=== PATIENT | female | born 1975 | race Caucasian/White ===

== ENCOUNTER 2019-08-10 | Emergency (ER) | payer BC ==
[~2019-08-10] MED LIST: AMOXICILLIN500 MG OR; CIPRO500 MG OR; EFFEXOR XR75 MG PO; FLEXERIL5 MG PO; HYDROCHLOROT25 MG PO; LORTAB 5/3255 MG PO; MELOXICAM15 MG PO; NO HOME MEDS; PERCOCET 5/325M1 TAB OR; PERCOCET 5/325M1 TAB PO; SOMA350 MG PO; ULTRAM50 M1 OR; ULTRAM50 M1 PO; ULTRAM50 MG OR
[2019-08-10] MEDS ORDERED: NAPROXEN DR500 MG PO (12:22)
[2019-08-10] MEDS ORDERED: FLEXERIL PO (12:22)
== END 2019-08-10 12:30 | disposition home or self-care (01) | DRG 563 ==
DX: S39.012A Strain of muscle, fascia and tendon of lower back, initial encounter (principal); F17.210 Nicotine dependence, cigarettes, uncomplicated; X58.XXXA Exposure to other specified factors, initial encounter

== ENCOUNTER 2020-01-23 09:42 | Emergency (ER) | payer SELFPAY ==
[~2020-01-23] VITALS: Ht 160 cm; Wt 73.6 kg
[~2020-01-23 09:42] MED LIST changes: +FLEXERIL PO; +NAPROXEN DR500 MG PO
[2020-01-23 10:19] LABS: HEMATOCRIT 37.9 % (37.0-47.0); HEMOGLOBIN 11.8 g/dl (12.0-16.0); IMMATURE GRANULOCYTES 0.3 % (0.0-5.0); MEAN CORPUSCULAR HGB 29.1 pG CALC (26.0-32.0); MEAN CORPUSCULAR HGB CONC 31.1 g/dL CAL (32.0-36.0); NEUT# 2.77 thou/uL (2.00-7.15); RED BLOOD COUNT 4.06 mill/uL (4.20-5.60); RED CELL DISTRI WIDTH 14.9 % (11.5-15.5)
[2020-01-23 10:28] LABS: URINE BILIRUBIN - DIPSTICK NEGATIVE (NEGATIVE); URINE BLOOD DIPSTICK TRACE-INTACT (NEGATIVE); URINE COLOR YELLOW; URINE GLUCOSE - DIPSTICK NEGATIVE (NEGATIVE); URINE KETONE NEGATIVE (NEGATIVE); URINE LEUK ESTERASE NEGATIVE (NEGATIVE); URINE NITRITE - DIPSTICK NEGATIVE (Negative); URINE PROTEIN - DIPSTICK NEGATIVE (NEG-TRACE); URINE UROBILINOGEN - DIPSTICK 0.2 E.U./dL (0.2)
[2020-01-23 10:38] LABS: MEAN CELL VOLUME 93.3 fL CALC (80.0-100.0)
[2020-01-23 10:43] LABS: ALBUMIN 3.7 g/dL (3.2-5.0); ALKALINE PHOSPHATASE 73 u/l (38-126); ANION GAP 10 (6-22 (CALC)); BILIRUBIN, TOTAL 0.6 mg/dL (0.0-1.4); BUN 13 mg/dL (7-17); BUN/CREATININE RATIO 17 (12-20 (CALC)); CARBON DIOXIDE 22 mmol/l (22-30); CHLORIDE 109 mmol/l (95-108); CREATININE 0.7 mg/dL (0.5-1.0); GFR > 60 ML/MIN (>=60 (CALC)); GFR FOR AFR.AMER. > 60 ML/MIN (>=60 (CALC)); LIPASE 104 u/l (23-300); SGOT/AST 24 u/l (14-36); SODIUM 137 mmol/l (137-146); TOTAL PROTEIN 6.4 g/dL (6.3-8.2)
[2020-01-23] MEDS ORDERED: CYCLOBENZAPR5 MG PO (13:27)
[2020-01-23] MEDS ORDERED: VOLTAREN1%GEL TOP (13:27)
[2020-01-23 13:50] VITALS: BP 126/68
== END 2020-01-23 13:50 | disposition home or self-care (01) | DRG 552 ==
LOC: ED 09:42
PROVIDERS: Family Medicine
DX: M54.5 Low back pain (principal); M25.552 Pain in left hip; F17.210 Nicotine dependence, cigarettes, uncomplicated

== ENCOUNTER 2023-03-30 10:50 | Day surgery (SDC) | payer OTHER ==
[~2023-03-30] VITALS: Ht 160 cm; Wt 82.1 kg
[~2023-03-30 10:50] MED LIST changes: +AMLODIPINE BESYL5 MG PO; +CELEBREX100 M1 PO; +CYCLOBENZAPR5 MG PO; +FLEXERIL5 M1 PO; +NEURONTIN800 MG PO; +VOLTAREN1%GEL TOP; +WELLBUTRIN200 M1 PO
[2023-03-30 13:18] VITALS: BP 126/85
== END 2023-03-30 13:32 | disposition home or self-care (01) | DRG 951 ==
LOC: ENDO 10:50 → ORM 15:00
PROVIDERS: ATTEND Internal Medicine Gastroenterology
PROC: 0DBK8ZX Excision of Ascending Colon, Via Natural or Artificial Opening Endoscopic, Diagnostic (ICD-10-PCS; principal; 2023-03-30)
PROC: 0DB48ZX Excision of Esophagogastric Junction, Via Natural or Artificial Opening Endoscopic, Diagnostic (ICD-10-PCS; 2023-03-30)
PROC: 0DB78ZX Excision of Stomach, Pylorus, Via Natural or Artificial Opening Endoscopic, Diagnostic (ICD-10-PCS; 2023-03-30)
PROC: 0DB38ZX Excision of Lower Esophagus, Via Natural or Artificial Opening Endoscopic, Diagnostic (ICD-10-PCS; 2023-03-30)
DX: Z12.11 Encounter for screening for malignant neoplasm of colon (principal); D12.2 Benign neoplasm of ascending colon; K64.8 Other hemorrhoids; K21.00 Gastro-esophageal reflux disease with esophagitis, without bleeding; K29.70 Gastritis, unspecified, without bleeding; K22.81 Esophageal polyp; K44.9 Diaphragmatic hernia without obstruction or gangrene; K31.9 Disease of stomach and duodenum, unspecified; Z80.0 Family history of malignant neoplasm of digestive organs; Z83.719 Family history of colon polyps, unspecified